=== PATIENT | male | born 1950 | race Caucasian/White ===

== ENCOUNTER → 2016-03-04 | Outpatient (CLI) | payer BC, MEDICARE ==
[~2016-03-04] VITALS: Ht 180.3 cm; Wt 79.4 kg
[~2016-03-04] MED LIST: ALPR0.5T PO; BUSP10TA95 PO; ENAL20TA74 PO; EZET10TA5 PO; FLUT1DIS26 IH; HYDR12.56 PO; METF500T3 PO; OXYC-197 PO; RT-ALBUINH IH; SERT100T PO; ZAFI20TA12 PO
== END ==
LOC: PREOP 06:58
PROVIDERS: ATTEND Surgery
DX: Z01.818 Encounter for other preprocedural examination (principal); Z12.11 Encounter for screening for malignant neoplasm of colon

== ENCOUNTER 2016-03-08 10:47 | Day surgery (SDC) | payer BC, MEDICARE ==
[~2016-03-08] VITALS: Ht 180.3 cm; Wt 79.4 kg
--- NOTE | 2016-03-08 10:59 | Pre-Op Note & Conscious Sedat ---
Pre-Operative Progress Note H&P Reviewed The H&P was reviewed, patient examined and no changes noted. Date H&P Reviewed: Mar 08, 2016 Time H&P Reviewed: 10:59 Pre-Op Diagnosis: screening Conscious Sedation Pre-Proced ASA Class: 2 Airway Mallampati Classification: (little shell tribe appropriate class) I. II. III, IV Lungs Heart ASA score ASA 1: a normal healthy patient ASA 2: a patient with a mild systemic disease (mid diabetes, controlled hypertension, obesity ASA 3: a patient with a severe systemic disease that limits activity (angina , COPD, prior Myocardial infarction) ASA 4: a patient with an incapacitating disease that is a constant threat to life (CHF, renal failure) ASA 5: a moribund patient not expected to survive 24 hrs. (ruptured aneurysm) ASA 6: a declared brain patient whose organs are being harvested. For emergent operations, add the letter E after the classification Grade 1 Sedation Plan: Discussed options with patient/fam Note The patient is an appropriate candidate to undergo the planned procedure, sedation, and anesthesia. The patient immediately re-assessed prior to indication. TOYIN BRISENO MD Mar 08, 2016 10:59 am
[2016-03-08] MEDS ORDERED: NS IV 500 ML 500 ML ONE (11:10)
[2016-03-08] MEDS ORDERED: NS IV 500 ML 500 ML IV PRN (11:20)
[2016-03-08 11:52] VITALS: BP 102/47
[2016-03-08] MEDS ORDERED: FLUMAZENIL (ROMAZICON) 0.1 MG/ML 5 ML VIAL INJ PRN (12:00)
[2016-03-08] MEDS ORDERED: NALOXONE 0.4 MG/ML 1 ML (NARCAN) VIAL IVP PRN (12:00)
[2016-03-08] MEDS ORDERED: FLUT1DIS26 IH (12:02)
[2016-03-08] MEDS ORDERED: EZET10TA5 PO (12:02)
[2016-03-08] MEDS ORDERED: BUSP10TA95 PO (12:02)
[2016-03-08] MEDS ORDERED: HYDR12.56 PO (12:02)
[2016-03-08] MEDS ORDERED: ALPR0.5T PO (12:02)
[2016-03-08] MEDS ORDERED: ENAL20TA74 PO (12:02)
[2016-03-08] MEDS ORDERED: METF500T3 PO (12:02)
[2016-03-08] MEDS ORDERED: ZAFI20TA12 PO (12:02)
[2016-03-08] MEDS ORDERED: RT-ALBUINH IH (12:02)
[2016-03-08] MEDS ORDERED: SERT100T PO (12:02)
[2016-03-08] MEDS ORDERED: fentaNYL INJECTION 100 MCG/2 ML AMP INJ ONE ×2 (12:04)
[2016-03-08] MEDS: fentaNYL INJECTION 100 MCG/2 ML AMP IVP PRN ×4 (12:10→12:22)
[2016-03-08] MEDS: MIDAZOLAM 2 MG/2 ML (VERSED) VIAL IVP PRN ×4 (12:15→12:21)
--- NOTE | 2016-03-08 12:32 | Progress Note-Post Operative ---
Post-Operative Progess Note Pre-Operative Diagnosis screening Post-Operative Diagnosis 2 mm polyp at the proximal rectum Post-Op Procedure Note Date of Procedure: Mar 08, 2016 Name of Procedure: colonoscopy to cecum Hot biopsy polypectomy Anesthesia Type sedation Specimen(s) collected rectal polyp TOYIN BRISENO MD Mar 08, 2016 12:32 pm
--- NOTE | 2016-03-08 12:33 | Discharge Inst-Simple/Standard ---
Discharge Inst-Standard Discharge Medications New, Converted or Re-Newed RX: Other Patient Instructions/Follow Up Plan of Care/Instructions/FU: repeat colonoscopy in 5 years. To return for hernia surgery as instructed Activity as Tolerated: Yes Discharge Diet: No Restrictions TOYIN BRISENO MD Mar 08, 2016 12:33 pm
--- NOTE | 2016-03-08 12:47 | PROCEDURE REPORT ---
PROCEDURE PHYSICIAN: TOYIN BRISENO DATE OF PROCEDURE: 03/08/2016 PROCEDURE: 1. Screening colonoscopy. 2. Polypectomy (hot biopsy). SURGEON: Yossi. INDICATION FOR THE PROCEDURE: This gentleman came in for screening colonoscopy. Informed consent was obtained after reviewing the procedure in detail. DESCRIPTION OF PROCEDURE: He was placed in left lateral decubitus position and his vital signs were monitored. Conscious sedation was achieved using Versed and fentanyl. Digital rectal examination was unremarkable. The colonoscope was then introduced into the rectum and advanced all the way up to the cecum. The quality of bowel preparation was excellent. The scope was then withdrawn slowly and the mucosa examined in a systematic fashion. FINDINGS: 2 mm polyp at the proximal rectum that was excised with hot biopsy forceps. He tolerated the procedure well and was taken back to the nursing area in a stable condition. IMPRESSION: 1. Screening colonoscopy. 2. Small rectal polyp excised. 3. Recommend repeating in 5 years. Job ID: [id number] Dictated Date: 03/08/2016 12:30:07 Hydraulic Lift Operator Date: 03/08/2016 12:43:29 / tonie RENE
[2016-03-08 13:05] VITALS: BP 114/65
[2016-03-08 13:30] VITALS: BP 118/72
[2016-03-19] MEDS ORDERED: OXYC-197 PO (10:00)
== END 2016-03-08 13:30 | disposition home or self-care (01) ==
LOC: SDC 10:47
PROVIDERS: ATTEND Surgery
DX: Z12.11 Encounter for screening for malignant neoplasm of colon (principal); K62.1 Rectal polyp

== ENCOUNTER 2016-03-08 10:55 | Outpatient (CLI) | payer BC, MEDICARE ==
[~2016-03-08] VITALS: Ht 180.3 cm; Wt 79.4 kg
[2016-03-08] MEDS ORDERED: FLUMAZENIL (ROMAZICON) 0.1 MG/ML 5 ML VIAL INJ PRN (11:15)
[2016-03-08] MEDS ORDERED: NALOXONE 0.4 MG/ML 1 ML (NARCAN) VIAL IVP PRN (11:15)
[2016-03-08] MEDS ORDERED: fentaNYL INJECTION 100 MCG/2 ML AMP IVP PRN (11:15)
[2016-03-08] MEDS ORDERED: MIDAZOLAM 2 MG/2 ML (VERSED) VIAL IVP PRN (11:15)
[2016-03-08] MEDS ORDERED: NS IV 500 ML 500 ML IV PRN (11:30)
[2016-03-08 11:37] VITALS: BP 102/47
[2016-03-08] MEDS ORDERED: BUSP10TA95 PO (12:02)
[2016-03-08] MEDS ORDERED: ZAFI20TA12 PO (12:02)
[2016-03-08] MEDS ORDERED: HYDR12.56 PO (12:02)
[2016-03-08] MEDS ORDERED: ALPR0.5T PO (12:02)
[2016-03-08] MEDS ORDERED: RT-ALBUINH IH (12:02)
[2016-03-08] MEDS ORDERED: FLUT1DIS26 IH (12:02)
[2016-03-08] MEDS ORDERED: ENAL20TA74 PO (12:02)
[2016-03-08] MEDS ORDERED: EZET10TA5 PO (12:02)
[2016-03-08] MEDS ORDERED: METF500T3 PO (12:02)
[2016-03-08] MEDS ORDERED: SERT100T PO (12:02)
[2016-03-08 12:12] LABS: BASOPHILS % (AUTO) 0 % (0-10); EOSINOPHILS # (AUTO) 0.1 10^3/uL (0.0-0.3); EOSINOPHILS % (AUTO) 3 % (0-10); LYMPHOCYTES # (AUTO) 2.1 X 10^3 (1.0-4.0); LYMPHOCYTES % (AUTO) 41 % (12-44); MEAN CORPUSCULAR HEMOGLOBIN 32 PG (25-34); MEAN CORPUSCULAR HGB CONC 36 G/DL (32-36); MEAN CORPUSCULAR VOLUME 89 FL (80-99); MEAN PLATELET VOLUME 9.7 FL (7.4-10.4); MONOCYTES # (AUTO) 0.6 X 10^3 (0.0-1.0); MONOCYTES % (AUTO) 12 % (0-12); NEUTROPHILS # (AUTO) 2.3 X 10^3 (1.8-7.8); NEUTROPHILS % (AUTO) 44 % (42-75); PLATELET COUNT 165 10^3/uL (130-400); RED CELL DISTRIBUTION WIDTH 12.6 % (10.0-14.5); WHITE BLOOD COUNT 5.2 10^3/uL (4.3-11.0)
[2016-03-08 12:33] LABS: ANION GAP 14 MMOL/L (5-14); BLOOD UREA NITROGEN 12 MG/DL (7-18); BUN/CREATININE RATIO 11; CALCIUM 9.9 MG/DL (8.5-10.1); CARBON DIOXIDE 23 MMOL/L (21-32); CHLORIDE 93 MMOL/L (98-107); CREATININE SERUM 1.13 MG/DL (0.60-1.30); GFR ESTIMATED > 60; GLUCOSE 138 MG/DL (70-105); SODIUM 130 MMOL/L (135-145)
== END 2016-03-08 12:58 | disposition home or self-care (01) ==
LOC: PREOP 10:55
PROVIDERS: ATTEND Surgery
DX: Z01.812 Encounter for preprocedural laboratory examination (principal); Z11.2 Encounter for screening for other bacterial diseases; K43.9 Ventral hernia without obstruction or gangrene
CPT/HCPCS: 36415; 80048; 85025; 87081

== ENCOUNTER 2016-03-19 06:00 | Day surgery (SDC) | payer BC, MEDICARE ==
[~2016-03-19] VITALS: Ht 180.3 cm; Wt 79.4 kg
[~2016-03-19 06:00] MED LIST changes: -OXYC-197 PO
--- OUTSIDE RECORDS SUMMARY | 2016-03-19 06:09 | XMS REPORT | Continuity of Care Document ---
Author Author [facility] Organization [facility] Address Unknown Phone Unavailable Care Team Providers Care Binder Technician Name Role Phone THANIA WELSH MD PCP Insurance Providers Payer Name Policy Number Subscriber Name Relationship [facility] [id number] Denae Irizarry 01 Advance Directives Directive Response Recorded Date/Time Advance Directives No 03/08/16 11:46am Health Care Power of Paperhanger Supervisor No 03/08/16 11:46am Resuscitation Status Full Code 03/08/16 11:46am Problems No problem information available. Medications Current Home Medications Medication Dose Units Route Directions Days/Qty Instructions Start Date Fluticasone/Salmeterol 1 Each 2 Puff Inhalation Daily 03/08/16 Metformin Hcl 500 Mg 500 Mg Oral Three Times A Day 03/08/16 Buspirone Hcl 10 Mg 10 Mg Oral Four Times Daily 03/08/16 Sertraline Hcl 100 Mg 100 Mg Oral Twice A Day 03/08/16 Zafirlukast 20 Mg 20 Mg Oral Twice A Day 03/08/16 Albuterol Sulfate 18 Gm 1-2 Puff Inhalation As Needed 03/08/16 Enalapril Maleate 20 Mg 20 Mg Oral Daily 03/08/16 Ezetimibe 10 Mg 10 Mg Oral Daily 03/08/16 Hydrochlorothiazide 12.5 Mg 12.5 Mg Oral Daily 03/08/16 Alprazolam 0.5 Mg 0.5 Mg Oral Three Times A Day 03/08/16 Social History Social History Problem Response Recorded Date/Time Alcohol Use Denies Use 03/08/2016 11:46am Recreational Drug Use No 03/08/2016 11:46am Recent Foreign Travel No 03/08/2016 11:43am Recent Infectious Disease Exposure No 03/08/2016 11:43am Sexually Transmitted Disease No 03/08/2016 11:02am HIV/AIDS No 03/08/2016 11:02am Smoking Status Never a Smoker 03/08/2016 11:46am Recent Hopitalizations No 03/08/2016 11:02am Sexually Transmitted Disease No 03/08/2016 11:02am Query Response Start Date Stop Date Smoking Status Never a Smoker Hospital Discharge Instructions No hospital discharge instructions. Plan of Care Discharge Date 03/08/16 12:58pm Prescriptions See Medication Section Functional Status No functional status results. Allergies, Adverse Reactions, Alerts Allergen Type Severity Reaction Status Last Updated Penicillins ([id number]) Allergy Unknown Active 03/04/16 Immunizations No immunization records. Vital Signs Acute Vital Signs Vital Response Date/Time Temperature (Fahrenheit) 97.9 degrees F (97.6 - 99.5) 03/08/2016 1:30pm Temperature (Calculated Celsius) 36.49933 degrees C (36.4 - 37.5) 03/08/2016 1:30pm Temperature Source Tympanic 03/08/2016 1:30pm Pulse Rate (adult) 69 bpm (60 - 90) 03/08/2016 1:30pm Respiratory Rate 16 bpm (12 - 24) 03/08/2016 1:30pm O2 Sat by Pulse Oximetry 95 % (88 - 100) 03/08/2016 1:30pm Blood Pressure 118/72 mm Hg 03/08/2016 1:30pm Blood Pressure Mean 65 mm Hg 03/08/2016 11:52am Blood Pressure 118/72 mm Hg 03/08/2016 1:30pm Pain Numeric Pain Scale 0-No Pain 03/08/2016 1:30pm Pain Intensity 0 03/08/2016 1:30pm Pain Pain Intensity 0 03/08/2016 1:30pm Height (Feet) 5 feet 03/08/2016 11:55am Height (Inches) 11.00 inches 03/08/2016 11:55am Height (Calculated Centimeters) 180.998259 cm 03/08/2016 11:55am Weight (Pounds) 175 pounds 03/08/2016 11:55am Weight (Ounces) 0.0 oz 03/08/2016 11:55am Weight (Calculated Grams) 79458.67 gm 03/08/2016 11:55am Weight (Calculated Kilograms) 79.057558 kilograms 03/08/2016 11:55am Calculated BMI 24.4 03/08/2016 11:55am Results Pending Laboratory Results Test Name Collection Date/Time Procedures No known history of procedures. Encounters Encounter Location Arrival/Admit Date Discharge/Depart Date Attending Provider Departed Clinic [facility] 03/08/16 10:55am 03/08/16 12: 58pm TOYIN BRISENO MD Registered [facility] 03/08/16 10:47am TOYIN BRISENO MD Registered Clinic [facility] 03/04/16 6:58am TOYIN BRISENO MD
--- OUTSIDE RECORDS SUMMARY | 2016-03-19 06:10 | XMS REPORT | Continuity of Care Document ---
Author Author [facility] Organization [facility] Address Unknown Phone Unavailable Care Team Providers Care Mechanical Equipment Test Engineer Name Role Phone THANIA WELSH MD PCP Insurance Providers Payer Name Policy Number Subscriber Name Relationship [facility] [id number] Denae Irizarry 01 Advance Directives Directive Response Recorded Date/Time Advance Directives No 03/08/16 11:46am Health Care Power of Puppy Walker No 03/08/16 11:46am Resuscitation Status Full Code [...] Type Severity Reaction Status Last Updated Penicillins ([id number]) Allergy Unknown Active 03/04/16 Immunizations No immunization records. Vital Signs Acute Vital Signs Vital Response Date/Time Temperature (Fahrenheit) 97.9 degrees F (97.6 - 99.5) 03/08/2016 1:30pm Temperature (Calculated Celsius) 36.26247 degrees C (36.4 - 37.5) 03/08/2016 1:30pm [...] 11.00 inches 03/08/2016 11:55am Height (Calculated Centimeters) 180.949244 cm 03/08/2016 11:55am Weight (Pounds) 175 pounds 03/08/2016 11:55am Weight (Ounces) 0.0 oz 03/08/2016 11:55am Weight (Calculated Grams) 15480.67 gm 03/08/2016 11:55am Weight (Calculated Kilograms) 79.475878 kilograms 03/08/2016 11:55am Calculated BMI 24.4 03/08/2016 11:55am Results Pending Laboratory Results Test Name Collection Date/Time Procedures No known history of procedures. Encounters Encounter Location Arrival/Admit Date Discharge/Depart Date Attending Provider Departed Clinic [facility] 03/08/16 10:55am 03/08/16 12: 58pm TOYIN BRISENO MD Registered [facility] 03/08/16 10:47am TOYIN BRISENO MD Registered Clinic [facility] 03/04/16 6:58am TOYIN BRISENO MD
[2016-03-19] MEDS ORDERED: PREGABALIN 75 MG (LYRICA) CAP PO ONE ×2 (06:45→10:00)
[2016-03-19] MEDS ORDERED: oxyCODONE ER 10 MG (OxyCONTIN CR) TAB PO ONE ×2 (06:45→10:00)
[2016-03-19] MEDS ORDERED: ACETAMINOPHEN 500 MG TAB (TYLENOL) PO ONE ×2 (06:45→10:00)
[2016-03-19] MEDS ORDERED: CELECOXIB 100 MG (CeleBREX) CAP PO ONE ×2 (06:45→10:00)
[2016-03-19] MEDS ORDERED: FAMOTIDINE 20MG/2ML IV (PEPCID) IV ONE (07:00)
[2016-03-19] MEDS ORDERED: BUP/EPI 0.25% 1:200,000 (MARCAINE) 30 ML VIAL ONE (07:01)
[2016-03-19] MEDS: LACTATED RINGERS 1,000 ML IV PRN ×2 (07:13→09:30)
[2016-03-19 07:20] VITALS: BP 154/104
[2016-03-19] MEDS ORDERED: VANCOMYCIN 1 GM/NS 250 ML IVPB IV ONE ×2 (07:30)
[2016-03-19] MEDS ORDERED: CATHETER FLUSH 10 ML SYR IV PRN (07:30)
[2016-03-19] MEDS ORDERED: VANCOMYCIN 1 GM ADD-VANTAGE VIAL IV ONE (07:53)
[2016-03-19] MEDS ORDERED: SODIUM CHLORIDE (ADD-VANTAGE) 250 ML ONE (07:54)
[2016-03-19] MEDS ORDERED: LIDOCAINE PF 2% 10 ML (XYLOCAINE) AMP ONE (07:57)
[2016-03-19] MEDS ORDERED: MIDAZOLAM 2 MG/2 ML (VERSED) VIAL ONE (07:57)
[2016-03-19] MEDS ORDERED: LIDOCAINE JELLY 2% (XYLOCAINE) 5 ML TUBE ONE (07:57)
[2016-03-19] MEDS ORDERED: ROCURONIUM 50 MG/5 ML (ZEMURON) VIAL IV ONE (07:57)
[2016-03-19] MEDS ORDERED: ONDANSETRON 4 MG/2 ML (SDV) Z0FRAN ONE (07:57)
[2016-03-19] MEDS ORDERED: proPOfol 200 MG/20 ML (DIPRIVAN) VIAL IV ONE ×2 (07:57→09:57)
[2016-03-19] MEDS ORDERED: LACTATED RINGERS 1,000 ML IV ONE ×2 (07:57→09:31)
[2016-03-19] MEDS ORDERED: KETAMINE HCL 100 MG/ML 5 ML VIAL ONE ×2 (07:58→08:28)
--- NOTE | 2016-03-19 08:20 | Progress Note-Pre Operative ---
Pre-Operative Progress Note H&P Reviewed The H&P was reviewed, patient examined and no changes noted. Date H&P Reviewed: Mar 19, 2016 Time H&P Reviewed: 08:20 Pre-Operative Diagnosis: Ventral hernia TOYIN BRISENO MD Mar 19, 2016 8:20 am
[2016-03-19] MEDS ORDERED: SEVOFLURANE (ULTANE) 15 ML INHAL SOLN ONE ×8 (09:30→10:04)
[2016-03-19] MEDS ORDERED: hydrALAZINE (APESOLINE) 20 MG/ML VIAL ONE (09:31)
[2016-03-19] MEDS ORDERED: LIDOCAINE PF 0.5% 50 ML (XYLOCAINE) VIAL ONE (09:31)
[2016-03-19] MEDS ORDERED: NEOSTIGMINE (BLOXIVERZ ) 1 MG/1ML 10 ML VIAL ONE (09:55)
[2016-03-19] MEDS ORDERED: GLYCOPYRROLATE 0.2 MG/ML (ROBINUL) 2 ML VIAL ONE (09:55)
--- NOTE | 2016-03-19 09:57 | Progress Note-Post Operative ---
Post-Operative Progess Note Pre-Operative Diagnosis Ventral hernia Post-Operative Diagnosis SAME Post-Op Procedure Note Date of Procedure: Mar 19, 2016 Name of Procedure: robotic assisted repair with mesh Anesthesia Type Gen. Estimated blood loss (mL): minimal Specimen(s) collected hernia contents TOYIN BRISENO MD Mar 19, 2016 9:57 am
[2016-03-19] MEDS ORDERED: morphine INJ 4 MG/ML 1 ML (VIAL/SYRINGE) IV PRN (10:00)
[2016-03-19] MEDS ORDERED: OXYC-197 PO (10:00)
--- NOTE | 2016-03-19 10:01 | Discharge Inst-Simple/Standard ---
Discharge Inst-Standard Discharge Medications New, Converted or Re-Newed RX: RX on Chart Patient Instructions/Follow Up Plan of Care/Instructions/FU: Dressings off in 48 hours ; follow-up in 4 weeks Activity as Tolerated: No Goal: no lifting over 20 pounds Discharge Diet: ADA TOYIN Cohn MD Mar 19, 2016 10:01 am
[2016-03-19] MEDS ORDERED: ONDANSETRON 4 MG/2 ML (SDV) Z0FRAN IVP PRN (10:30)
[2016-03-19] MEDS ORDERED: MEPERIDINE (DEMEROL) INJ 50 MG/ML IVP PRN (10:30)
[2016-03-19] MEDS ORDERED: morphine INJ 10 MG/ML 1ML (SYR OR VIAL) IVP PRN (10:30)
[2016-03-19] MEDS: morphine INJ 10 MG/ML 1ML (SYR OR VIAL) IV PRN ×4 (10:33→14:44)
[2016-03-19 11:13] VITALS: BP 127/76
[2016-03-19] MEDS: KETOROLAC 30 MG/ML VIAL IV SCH ×4 (12:00→23:48)
[2016-03-19] MEDS: KETOROLAC 15 MG/ML VIAL IV SCH ×3 (12:00→23:41)
--- NOTE | 2016-03-19 12:46 | OPERATIVE REPORT ---
PROCEDURE PHYSICIAN: TOYIN BRISENO DATE OF PROCEDURE: 03/19/2016 PREOPERATIVE DIAGNOSIS: Ventral hernia. POSTOPERATIVE DIAGNOSIS: Ventral hernia. OPERATION: Robotic assisted repair of ventral hernia with mesh. SURGEON: Yossi. ANESTHESIA: General anesthesia. BLOOD LOSS: Minimal. FLUIDS: 1300 mL crystalloids. TYPE OF WOUND: Type 1 (clean wound). INDICATION FOR THE PROCEDURE: This gentleman presented with a symptomatic ventral hernia in relation to his umbilicus. He was offered minimally invasive repair using robotic assistance and mesh replacement. The feasibility of primary closure of the defect with the robotic technique was felt to be an advantage. Informed consent was obtained after reviewing the operative details and complications of wound infection, infection of the mesh and recurrence of the hernia. DESCRIPTION OF PROCEDURE: He was placed supine on the operating table and general anesthesia induced using an endotracheal tube. A gram of vancomycin was administered intravenously as prophylaxis against wound infection. Sequential compression devices were placed around his legs, to minimize the risk of venous thrombosis. Abdomen was prepared and draped in the usual sterile manner. Right side of his body with tilted up on a soft roll to facilitate triangulation of the robotic system. Pneumoperitoneum was established using a Veress needle introduced over the right subcostal margin, along the midaxillary line. Intra-abdominal pressure was maintained at 15 mmHg, using carbon dioxide insufflation. A 12 mm trocar was placed and anatomy visualized using the high definition, 3 dimensional laparoscope associated with Kizziang system. Omentum was adherent to the undersurface of the right paramedian scar. In addition, omentum was also trapped within the hernia itself. Under direct view, I placed another 12 mm trocar over the right side of the abdomen along the midaxillary line, followed by an 8 mm trocar over the right lower quadrant. The robotic system was then docked in place. Under the right paramedian scar was taken down using hook cautery. In addition, extraperitoneal fat contained within the hernia was also excised and removed using an Endo Catch bag at the end of the operation. Greater omentum entrapped within the hernia was taken down delineating the defect, that measured about 2 cm in diameter. It was closed primarily using a 0 V-Loc suture using robotic assistance. During this maneuver, intra-abdominal pressure was maintained at 10 mm to reduce tension on the suture line. The repair was then reinforced with a polypropylene mesh attached to a self-retaining balloon system, measuring 11.4 cm in diameter. The balloon was held up to facilitate securing the mesh with robotic assistance. This was achieved using a continuous V-Loc 2-0 suture with robotic assistance. Hemostasis was satisfactory and the operation concluded. The trocars were removed and the incisions closed using 4-0 Vicryl, in a subcuticular fashion. 0.25% Marcaine with epinephrine was infiltrated along the incisions, both preemptively and at the conclusion of the operation. He tolerated the procedure well, was extubated in the operating room and taken to the recovery room in a stable condition. [place], sponges, and instruments were correct at the end of the operation. Job ID: [id number] Dictated Date: 03/19/2016 09:54:20 Workers Compensation Coordinator Date: 03/19/2016 12:37:00 / tonie RENE
[2016-03-19] MEDS: metFORMIN XR 500 MG (GLUCOPHAGE XR) TAB PO SCH ×2 (13:00→17:00)
[2016-03-19] MEDS: ALPRAZolam 0.5 MG (XANAX) TAB PO SCH ×2 (13:00→20:52)
[2016-03-19] MEDS: busPIRone 10 MG (BUSPAR) TAB PO SCH ×3 (13:00→20:51)
[2016-03-19] MEDS: RT-ALBUTEROL SULF 2.5 MG/3 ML PRE-MIX VIAL INH SCH ×2 (14:07→19:02)
[2016-03-19 16:00] VITALS: BP 152/87
[2016-03-19 20:00] VITALS: BP 146/77
[2016-03-19] MEDS: SERTRALINE 100 MG (ZOLOFT) TAB PO SCH (20:52)
[2016-03-19] MEDS ORDERED: ZAFIRLUKAST (ACCOLATE) 20 MG TAB PO SCH (21:00)
[2016-03-20] VITALS: BP 138/76
[2016-03-20 04:00] VITALS: BP 116/65
[2016-03-20] MEDS: KETOROLAC 15 MG/ML VIAL IV SCH (06:00)
[2016-03-20] MEDS: KETOROLAC 30 MG/ML VIAL IV SCH (06:11)
[2016-03-20] MEDS: metFORMIN XR 500 MG (GLUCOPHAGE XR) TAB PO SCH (06:12)
[2016-03-20] MEDS: RT-ALBUTEROL SULF 2.5 MG/3 ML PRE-MIX VIAL INH SCH (07:37)
[2016-03-20] MEDS: RT-ADVAIR HFA 115/21 MCG PER PUFF IH SCH ×2 (07:41→07:46)
[2016-03-20 08:00] VITALS: BP 123/64
[2016-03-20] MEDS: ALPRAZolam 0.5 MG (XANAX) TAB PO SCH (08:14)
[2016-03-20] MEDS: busPIRone 10 MG (BUSPAR) TAB PO SCH (08:14)
[2016-03-20] MEDS: SERTRALINE 100 MG (ZOLOFT) TAB PO SCH (08:15)
[2016-03-20] MEDS ORDERED: ENALAPRIL 10 MG (VASOTEC) TAB PO SCH (09:00)
[2016-03-20] MEDS ORDERED: eZETimibe 10 MG (ZETIA) TABLET PO SCH (09:00)
[2016-03-20] MEDS ORDERED: ENALAPRIL MALEATE 20 MG PO SCH (09:00)
[2016-03-20] MEDS ORDERED: NON-FORMULARY MEDICATION 1 EA EA (Fluticasone/Salmeterol (Advair 250-50 Diskus) 2 PUFF) IH SCH (09:00)
--- NOTE | 2016-03-20 10:58 | Progress Note-Standard ---
Standard Progress Note Progress Notes/Assess & Plan Progress/Assessment & Plan 03/20/16:ppain control adequate. Mild ecchymosis around the umbilicus. Tolerating soft diet. Could be discharged home Final Diagnosis ventral hernia TOYIN BRISENO MD Mar 20, 2016 10:58 am
[2016-03-20 11:00] VITALS: BP 128/68
== END 2016-03-20 11:00 | disposition home or self-care (01) ==
LOC: SDC 06:00 → 4TH 11:13 → SDC 03-20 11:00
PROVIDERS: ATTEND Surgery
DX: K43.9 Ventral hernia without obstruction or gangrene (principal); E11.9 Type 2 diabetes mellitus without complications; Z79.84 Long term (current) use of oral hypoglycemic drugs
CPT/HCPCS: 82962; 94640; 94664; 94760

== ENCOUNTER → 2017-01-31 | Outpatient (CLI) | payer BC ==
[~2017-01-31] VITALS: Ht 182.9 cm; Wt 81.6 kg
[~2017-01-31] MED LIST changes: +CATHETER FLUSH 10 ML SYR IV PRN; +OXYC-197 PO
[2017-01-31 07:57] VITALS: BP 149/97
--- NOTE | 2017-01-31 22:02 | STRESS TEST ---
DATE OF SERVICE: 01/31/2017 EXERCISE MYOVIEW STRESS TEST REPORT Baseline heart rate is 77, baseline blood pressure 162/100. Baseline EKG is sinus rhythm with no ischemic changes. SUMMARY: The patient was injected with 10.43 mCi of technetium-99 Myoview and the resting images were obtained. Then, the patient started exercising with a baseline heart rate, blood pressure and EKG mentioned above. The patient was able to exercise for a total of 8 minutes and 30 seconds on standard Riki protocol. With peak exercise level, EKG was showing [address] depression in II, III and aVF. Blood pressure was 171/75. During recovery, heart rate and blood pressure returned to baseline, EKG returned to baseline. The resting and stress images were reviewed and compared in the short axis, horizontal long axis and vertical long axis views. Review of the images showed diaphragmatic attenuation with slight motion artifact affecting the quality of the images. Overall, there is decreased uptake at the mid to apical inferior wall, which appeared to be fixed. No significant reversibility was seen. SSS is 4, SDS 0, TID value 1.02. On the gated images, the left ventricle appeared to be in normal size with normal contractility, calculated ejection fraction 61%. CONCLUSION: 1. Good exercise tolerance. A total of 8 minutes 30 seconds on standard Riki protocol, total of 10.3 METs, achieving 89% of maximum expected heart rate. 2. Appropriate heart rate response to exercise with hypertensive response to exercise, returned to baseline during recovery. 3. Nondiagnostic EKG changes with exercise, returned to baseline during recovery. 4. Diaphragmatic attenuation with typical male pattern, no significant ischemia or infarction on SPECT images. 5. Normal left ventricular size with normal contractility, calculated ejection fraction 61%. Job ID: [id number] DocumentID: [id number] Dictated Date: 01/31/2017 11:11:41 Skip Miner Blasting Date: 01/31/2017 12:42:16 Dictated By: JOAQUIN ARELLANO MD
== END ==
LOC: CARD 06:43
PROVIDERS: ATTEND Internal Medicine Cardiovascular Disease
DX: E11.9 Type 2 diabetes mellitus without complications (principal); R06.02 Shortness of breath; I10 Essential (primary) hypertension; E78.5 Hyperlipidemia, unspecified; Z82.49 Family history of ischemic heart disease and other diseases of the circulatory system; Z83.3 Family history of diabetes mellitus
CPT/HCPCS: 78452; 93017

== ENCOUNTER → 2020-05-12 | Outpatient (CLI) | payer BC, MEDICARE ==
[~2020-05-12] MED LIST changes: -CATHETER FLUSH 10 ML SYR IV PRN; +EZET10TA17 PO; -EZET10TA5 PO; -OXYC-197 PO; +OXYC1TAB87 PO
== END ==
LOC: CARD 12:45
PROVIDERS: ATTEND Internal Medicine Cardiovascular Disease
DX: I10 Essential (primary) hypertension (principal); I34.0 Nonrheumatic mitral (valve) insufficiency
CPT/HCPCS: 93306

== ENCOUNTER → 2021-04-29 | Outpatient (CLI) | payer MEDICARE, OTHER ==
[~2021-04-29] MED LIST changes: +CATHETER FLUSH 10 ML SYR IVP PRN; +REGADENOSON 0.4 MG/5 ML SYR (LEXISCAN) IV ONE
[2021-04-29 13:07] VITALS: BP 148/82
--- NOTE | 2021-04-29 15:25 | Cardiology Stress Test Report ---
Stress Test Report Date of Procedure/Referring: Date of Procedure: Apr 29, 2021 Latonya Pacheco Admitting Physician Madison Landry MD Indications: HTN Baseline Heart Rate: 58 Baseline Blood Pressure: Blood Pressure Systolic: 148 Blood Pressure Diastolic: 82 Baseline Vitals Vital Signs Date Time Temp Pulse Resp B/P (MAP) Pulse Ox O2 Delivery O2 Flow Rate FiO2 04/29/21 13:07 58 148/82 (104) 98 Baseline EKG: Baseline EKG: NSR Summary After explaining the procedure to the patient, he signed a consent and then brought to the stress nuclear laboratory. Patient received 0.4 mg Lexiscan for stress test, ECG, heart rate and blood pressure were monitored continuously. Resting and stress dose of radio tracer were injected, imaging was acquired and reviewed in short axis, horizontal long axis and vertical long axis views. TID: 1.21 SSS: 3 SDS: 2 EF: 57 1. Patient was unable to exercise beyond 4 minutes and 20 seconds on standard Riki protocol. Test was converted to Lexiscan. 2. Diaphragmatic attenuation with mild ischemia involving the basal to mid inferior wall and inferolateral wall 3. Ejection fraction 57% 4. TID1.21 JOAQUIN ARELLANO MD Apr 29, 2021 15:25
== END ==
LOC: CARD 11:30
PROVIDERS: ATTEND Physician Assistant
DX: I10 Essential (primary) hypertension (principal)
CPT/HCPCS: 78452; 93017; A9502

== ENCOUNTER 2021-05-06 08:00 | Day surgery (SDC) | payer MEDICARE, OTHER ==
[~2021-05-06] VITALS: Ht 182 cm; Wt 79.9 kg
[2021-05-06] VITALS (10 sets, daily range): BP systolic 102–182; BP diastolic 69–126
[2021-05-06 07:16] LABS: HEMATOCRIT 44 % (40-54); HEMOGLOBIN 15.6 g/dL (13.3-17.7); MEAN CORPUSCULAR HEMOGLOBIN 32 pg (25-34); MEAN CORPUSCULAR HGB CONC 35 g/dL (32-36); MEAN CORPUSCULAR VOLUME 91 fL (80-99); MEAN PLATELET VOLUME 9.5 fL (9.0-12.2); PLATELET COUNT 156 10^3/uL (130-400); WHITE BLOOD COUNT 5.8 10^3/uL (4.3-11.0)
[2021-05-06 07:17] LABS: BILIRUBIN,URINE NEGATIVE (NEGATIVE); CLARITY,URINE CLEAR; COLOR,URINE YELLOW; GLUCOSE, URINE (UA) TRACE (NEGATIVE); KETONES,URINE NEGATIVE (NEGATIVE); LEUKOCYTE ESTERASE ,URINE NEGATIVE (NEGATIVE); NITRITE,URINE NEGATIVE (NEGATIVE); PROTEIN,URINE NEGATIVE (NEGATIVE)
[2021-05-06 07:26] LABS: BACTERIA,URINE NEGATIVE /HPF
--- NOTE | 2021-05-06 07:28 | Diagnostic Imaging Report ---
INDICATION: Coronary artery disease Frontal chest obtained at 7:24 a.m. There is no prior study for comparison Heart and mediastinal silhouette are normal in appearance. The lungs appear clear. There is no pneumothorax or pleural fluid collection. IMPRESSION: No acute process in the chest. Dictated by: Dictated on workstation # [id number]
[2021-05-06 07:43] LABS: ALANINE AMINOTRANSFERASE 58 U/L (0-55); ALBUMIN 4.6 GM/DL (3.2-4.5); ALKALINE PHOSPHATASE 78 U/L (40-136); BILIRUBIN,TOTAL 1.1 MG/DL (0.1-1.0); BUN/CREATININE RATIO 13; CALCIUM 9.9 MG/DL (8.5-10.1); CARBON DIOXIDE 21 MMOL/L (21-32); CHLORIDE 98 MMOL/L (98-107); CHOLESTEROL 143 MG/DL (< 200); GFR ESTIMATED 65; GLUCOSE 169 MG/DL (70-105); HDL CHOLESTEROL 55 MG/DL (40-60); POTASSIUM 3.7 MMOL/L (3.6-5.0); SODIUM 134 MMOL/L (135-145); TOTAL PROTEIN 7.9 GM/DL (6.4-8.2); TRIGLYCERIDES 87 MG/DL (<150); VLDL CHOLESTEROL 17 MG/DL (5-40)
[~2021-05-06 08:00] MED LIST changes: -CATHETER FLUSH 10 ML SYR IVP PRN; +FLUT1BLS3 IH; +HEParin (CATH LAB) 2,000 ML IV ONE; +HEParin 1000 UNIT/ML (10ML VIAL) FOR BOLUS ONE; +LIDOCAINE 1% INJ 50 ML (XYLOCAINE) VIAL ONE; +METF-397 PO; +MIDAZOLAM 5 MG/5 ML (VERSED) VIAL ONE; +NITRO DRIP 25000 MCG/D5W 250 ML IV ONE; +NS IV 1000 ML 1,000 ML IV SCH; +NS IV 1000 ML 1,000 ML ONE; -REGADENOSON 0.4 MG/5 ML SYR (LEXISCAN) IV ONE; +ROSU10TA28 PO; +RT-ALBUINH INH; +VERAPAMIL 5 MG/2 ML (CALAN) VIAL IV ONE; +VITAMIN B12 PO; +VITAMIN D PO; +fentaNYL INJ 100 MCG/2 ML AMP ONE
--- NOTE | 2021-05-06 08:01 | Conscious Sedation/ASA ---
Conscious Sedation Pre-Proced Time 08:01 ASA Score 3 For ASA 3 and 4: Consider anesthesia and medical clearance. Also, for patients with a history of failed moderate sedation consider anesthesia. Airway Lungs Heart ASA score ASA 1: a normal healthy patient ASA 2: a patient with a mild systemic disease (mid diabetes, controlled hypertension, obesity x ASA 3: a patient with a severe systemic disease that limits activity (angina, COPD, prior Myocardial infarction) ASA 4: a patient with an incapacitating disease that is a constant threat to life (CHF, renal failure) ASA 5: a moribund patient not expected to survive 24 hrs. (ruptured aneurysm) ASA 6: a declared brain- patient whose organs are being harvested. For emergent operations, add the letter E after the classification Mallampati Classification Grade 3 Sedation Plan Analgesia, Amnesia, Plan communicated to team members, Discussed options with patient/fam, Discussed risks with patient/fam The patient is an appropriate candidate to undergo the planned procedure, sedation, and anesthesia. The patient immediately re-assessed prior to indication. JOAQUIN ARELLANO MD May 06, 2021 08:01
--- NOTE | 2021-05-06 08:27 | Discharge Inst-Post CATH ---
Discharge Inst-CATH/EP Problems Reviewed?: Yes Post Cardiac Cath/EP D/C Inst Follow Up/Plan Hold Metformin for [address] Hermosillo's office in 4 weeks <b>CARDIAC CATH/EP PROCEDURE DISCHARGE INSTRUCTIONS</b> ACTIVITY * Go Home directly and rest. * Limit activity of the leg (or wrist if it was used) for 7 days including aerobics, swimming, jogging, bicycling, etc. * Restrict stair-climbing for 7 days if possible, if not, climb up with your non-cath leg, then bring together on the same step. * Avoid lifting, pushing, pulling or excessive movement of the affected extremity for 7 days. * Customary sexual activity may be resumed after 2 days-use caution not to use a position that strains or causes pain to the affected extremity. * No driving for 24 hours. * NO SMOKING. * Avoid straining for bowel movements for 7 days. * Gentle walking on level ground is allowed. * Returning to work will depend on the type of procedure and the results. Your doctor will discuss this with you. CALL YOUR DOCTOR FOR ANY OF THE FOLLOWING: *If bleeding from the puncture site occurs- Apply gentle pressure to site with clean cloth and call your doctor or EMS. * If a knot or lump forms under the skin, increases in size, or causes pain. * If bruising appears to be worsening or moving further down your leg instead of disappearing. * Temperature above 101 F. CARE OF YOUR GROIN INCISION; * Bruising or purple discoloration of the skin near the puncture site is common. * You may shower only, no bathtub bathing for 5 days. Be careful to avoid slipping as your leg may feel stiff. * If a closure device was used on your femoral artery, please see the attached guide regarding care of the device and your leg. * Leave dressing on FOR 24 hours. CARE OF YOUR WRIST INCISION; * Bruising or purple discoloration of the skin near the puncture site is common. * You may shower. * DO NOT submerge wrist. * Leave dressing on FOR 24 hours. JOAQUIN HERMOSILLO MD May 06, 2021 08:27
[2021-05-06] MEDS ORDERED: NS IV 1000 ML 1,000 ML IV SCH (08:30)
--- NOTE | 2021-05-06 08:51 | Cardiac Cath Report ---
Cardiac Cath Report Physician (s)/Tipple Mechanic (s) Physician JOAQUIN ARELLANO MD Pre-Procedure Diagnosis Pre-Procedure Diagnosis: Coronary artery disease Post-Procedure Note Procedure Start Date: May 06, 2021 Name of Procedure: Left heart catheterization Findings/Procedure Note PROCEDURE NOTE: 71 years old gentleman with history of hypertension, hyperlipidemia and diabetes mellitus, had an abnormal stress test with inferior wall ischemia, scheduled for cardiac catheterization possible PTCA. After explaining the procedure to the patient, all pros and cons were explained, all questions were answered. The patient signed the consent and then he was placed on the cardiac catheterization laboratory. Groin was prepped SL fashion local anesthesia was used. Sheath placed in the right radial artery, [place] catheter was advanced and prolapsed to the left ventricular cavity, pressure was measured, pullback LV to aorta was done, engaged the right and left coronary system, angiogram was done. At the end of the procedure the sheath was removed. 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 Mild disease in the right coronary artery 2. Mildly elevated left ventricular end-diastolic pressure DISCUSSION AND RECOMMENDATION: Medical therapy is recommended no intervention is warranted Anesthesia Type: Conscious Sedation Estimated blood loss (mL): 10 ml Contrast Amount: 37 ml Total Radiation Dose: 259 mGy Post-Procedure Diagnosis Post-operative diagnosis: Coronary artery disease Hypertension Hyperlipidemia Diabetes mellitus JOAQUIN ARELLANO MD May 06, 2021 08:51
== END 2021-05-06 11:30 | disposition home or self-care (01) ==
LOC: CATH 08:00 → SDC 09:00 → CATH 11:30
PROVIDERS: ATTEND Internal Medicine Cardiovascular Disease
DX: I25.10 Atherosclerotic heart disease of native coronary artery without angina pectoris (principal); I10 Essential (primary) hypertension; E78.2 Mixed hyperlipidemia; E11.9 Type 2 diabetes mellitus without complications; I65.23 Occlusion and stenosis of bilateral carotid arteries; J44.9 Chronic obstructive pulmonary disease, unspecified; I27.20 Pulmonary hypertension, unspecified; F41.9 Anxiety disorder, unspecified; Z79.891 Long term (current) use of opiate analgesic; Z79.899 Other long term (current) drug therapy; Z79.84 Long term (current) use of oral hypoglycemic drugs
CPT/HCPCS: 71045; 80053; 80061; 81000; 85027; 85610; 85730; 87081; 93458; C1894; 36415

== ENCOUNTER 2021-08-12 18:09 | Emergency (ER) | payer MEDICARE, OTHER ==
[~2021-08-12] VITALS: Ht 182 cm; Wt 79.0 kg
[~2021-08-12 18:09] MED LIST changes: -HEParin (CATH LAB) 2,000 ML IV ONE; -HEParin 1000 UNIT/ML (10ML VIAL) FOR BOLUS ONE; -LIDOCAINE 1% INJ 50 ML (XYLOCAINE) VIAL ONE; -MIDAZOLAM 5 MG/5 ML (VERSED) VIAL ONE; -NITRO DRIP 25000 MCG/D5W 250 ML IV ONE; -NS IV 1000 ML 1,000 ML IV SCH; -NS IV 1000 ML 1,000 ML ONE; -VERAPAMIL 5 MG/2 ML (CALAN) VIAL IV ONE; -fentaNYL INJ 100 MCG/2 ML AMP ONE
--- NOTE | 2021-08-12 20:07 | ED Fall/Injury ---
General Chief Complaint: Trauma-Non Activation Stated Complaint: FELL Nursing Triage Note: PT REPORTS LOSING BALANCE WHILE WALKING IN [facility]. C/O INTERMITTANT LEFT RIB PAIN, LEFT THIGH PAIN, LEFT HAND/FOREARM SKIN TEAR. DENIES LOC. Source: patient Exam Limitations: no limitations History of Present Illness Date Seen by Provider: Aug 12, 2021 Time Seen by Provider: 20:04 Initial Comments Patient is a 71-year-old male presents ED with left-sided rib pain, left-sided forehead pain, left leg pain. Patient states he fell about 2 hours ago while walking at [facility]. Patient states he typically walks hunched over and lost his balance hitting the corner of a shelf. This resulted in 2 lacerations to his left forehead without loss of consciousness. Not on blood thinners. Does have abrasion to his left hand left forearm and elbow without any pain on palpation or movement. Does have a contusion to the left mid thigh with some pain and discomfort with some pain with walking. Left-sided rib pain without pain with deep inspiration but does have tenderness on palpation. No vomiting, dizziness, headache, neck pain, middle lower back pain. States he does have a history of falling but denies loss of consciousness or syncopal episode with this fall. Denies chest pain, shortness of breath, cough, abdominal pain Allergies and Home Medications Allergies Coded Allergies: Penicillins (Verified Allergy, Unknown, 03/04/16) morphine (Verified Adverse Reaction, Unknown, 08/12/21) DOES NOT LIKE THE WAY IT MAKES HIM FEEL. Patient Home Medication List Home Medication List Reviewed: Yes Albuterol Sulfate (Ventolin Hfa) 18 Gm Hfa.aer.ad, 1-2 PUFF IH PRN, (Reported) Entered as Reported by: LOUIS GARRISON on 03/08/16 1202 Albuterol Sulfate (Ventolin Hfa) 1 Puff Puff, 2 PUFF INH Q4H PRN for SHORTNESS OF BREATH, (Reported) Entered as Reported by: JESSICA RAMÍREZ on 05/06/21 0738 Alprazolam (Xanax) 0.5 Mg Tablet, 0.5 MG PO PRN, (Reported) Entered as Reported by: LOUIS GARRISON on 03/08/16 1202 Buspirone HCl (Buspirone HCl) 10 Mg Tablet, 20 MG PO, (Reported) Entered as Reported by: LOUIS GARRISON on 03/08/161201 Buspirone HCl (Buspirone HCl) 10 Mg Tablet, 20 MG PO NIGHT, (Reported) Entered as Reported by: JESSICA RAMÍREZ on 05/06/21737 Enalapril Maleate (Vasotec) 20 Mg Tablet, 10 MG PO BID, (Reported) Entered as Reported by: LOUIS GARRISON on 03/08/161201 Fluticasone/Umeclidin/Vilanter (Trelegy Ellipta 100-62.5-25) 1 Each Blst.w.dev, 1 EACH IH AM, (Reported) Entered as Reported by: JESSICA RAMÍREZ on 05/06/21737 Hydrochlorothiazide (Hydrochlorothiazide) 12.5 Mg Tablet, 12.5 MG PO DAILY, (Reported) Entered as Reported by: LOUIS GARRISON on 03/08/161201 Metformin HCl (Glucophage Xr) 500 Mg Tab.er.24h, 500 MG PO, (Reported) Entered as Reported by: LOUIS GARRISON on 03/08/161201 Metformin HCl (Metformin HCl) 500 Mg Tablet, 1,000 MG PO NIGHT, (Reported) Entered as Reported by: JESSICA RAMÍREZ on 05/06/21737 Rosuvastatin Calcium (Rosuvastatin Calcium) 10 Mg Tablet, 10 MG PO NIGHT, (Reported) Entered as Reported by: JESSICA RAMÍREZ on 05/06/21737 Sertraline HCl (Zoloft) 100 Mg Tablet, 100 MG PO BID, (Reported) Entered as Reported by: LOUIS GARRISON on 03/08/161201 Zafirlukast (Accolate) 20 Mg Tablet, 20 MG PO BID, (Reported) Entered as Reported by: LOUIS GARRISON on 03/08/161201 [Vitamin B12] , 2,000 MCG PO NIGHT, (Reported) Entered as Reported by: JESSICA RAMÍREZ on 05/06/21737 [Vitamin D] , 5,000 UNIT PO NIGHT, (Reported) Entered as Reported by: JESSICA RAMÍREZ on 05/06/21737 Review of Systems Review of Systems Constitutional: No chills, No diaphoresis, No malaise, No weakness Eyes: Denies Blurred Vision Ears, Nose, Mouth, Throat: denies ear pain Respiratory: No cough Cardiovascular: No chest pain, No edema Gastrointestinal: No abdominal pain, No diarrhea, No nausea, No vomiting Genitourinary: No decreased output, No discharge Musculoskeletal: No back pain; joint pain, muscle pain, muscle stiffness Skin: change in color, other (abrasion and laceration) All Other Systems Reviewed Negative Unless Noted: Yes Past Louwxyo-Dsxoem-Arsouz Hx Patient Social History Tobacco Use?: No Substance use?: No Alcohol Use?: No Immunizations Up To Date Tetanus Booster (TDap): Unknown 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 0.0oz. [id number]; 23.00 BMI Method: General Appearance: WD/WN, no apparent distress HEENT: PERRL/EOMI, normal ENT inspection, TMs normal, pharynx normal Neck: non-tender, full range of motion, supple, normal inspection Cardiovascular: regular rate, rhythm, no edema, no gallop, no JVD Respiratory: chest non-tender, lungs clear, normal breath sounds, no respiratory distress, other (Left-sided rib tenderness) Gastrointestinal: normal bowel sounds, non tender, soft, no pulsatile mass Back: normal inspection, no CVA tenderness, no vertebral tenderness Extremities: other (Abrasion to left dorsum hand, left mid forearm, abrasion to right lateral forearm. Normal active range of motion without any tenderness to the left upper extremity. Salt Washer strength 5-5.) Neurologic/Psychiatric: brand strategy manager II-XII nml as tested, no motor/sensory deficits, alert, normal mood/affect, oriented x 3 Skin: other (To 1 cm lacerations to the left forehead without crepitus or step- off.) [place] Coma Score Best Eye Response: (4) Open Spontaneously Best Verbal Response: (5) Oriented Best Motor Response: (6) Obeys Commands [place] Total: 15 Procedures/Interventions Wound Location: Other (left sided face) Other Wound Location left forehead Wound Length (cm): 1 Wound's Depth, Shape: superficial, sub Q Wound Explored: clean Irrigated w/ Saline (ccs): 100 Betadine Prep?: Yes Anesthesia: 1% Lidocaine Volume Anesthetic (ccs): 2 Wound Debrided: minimal Suture: Ethlion Suture Size: 5-0 Number of Sutures: 3 Layer Closure?: 1 Number Deep Layer Sutures: 1 Sterile Dressing Applied?: Yes Laceration. #2, 1 cm laceration to the left forehead above the left orbit. Superficial with mild subcutaneous involvement. Irrigation with 100 mils of n ormal saline. Prepped with Betadine. Lidocaine 1% 1 mL was used. 5-0 Ethilon to's stitches were placed. Progress/Results/Core Measures Results/Orders My Orders Orders - HAILEY NOVA Ct Head Wo (08/12/21 20:03) Femur, Left, 2 Views (08/12/21 20:03) Ribs, Left 2-3 Views (08/12/21 20:03) Vital Signs/I&O 08/12/21 08/12/21 18:15 20:53 Temp 36.3 36.3 Pulse 95 68 Resp 16 16 B/P (MAP) 133/89 (104) 122/87 Pulse Ox 96 99 O2 Delivery Room Air Room Air Blood Pressure Mean: 104 Departure Communication (PCP) Nonactivated trauma. Mechanical fall. GCS 15. Laceration to left forehead. 5 Ethilon sutures were placed to two 1 cm laceration to the forehead. Contusion noted. Recommend ice. remove in [address] scan head unremarkable. Abrasions to the left forearm and hand without any tenderness on palpation. Left femur tenderness with contusion. X-ray left femur was negative. Complaining some mild rib discomfort with very minimal tenderness without step- off or crepitus. X-ray was negative for fracture. No concussion-like symptoms. History of falls in the past. No chest pain, shortness of breath, Yunier pain, vomiting, diarrhea. Patient appears nontoxic. Recommend ice to the forehead with a small contusion. Patient is not on blood thinners. No cervical, thoracic or lumbar midline tenderness. Neuro exam unremarkable. Return precaution were discussed with patient and family. Impression Primary Impression: Facial laceration Disposition: 01 HOME, SELF-CARE Condition: Stable Departure-Patient Inst. Decision time for Depature: 20:52 Referrals: THANIA WELSH MD (PCP/Family) Primary Care Physician Patient Instructions: Laceration Repair With Stitches ED Add. Discharge Instructions: Remove sutures in 6 to 8 days. Neosporin topical twice a day. If any worsening symptoms such as severe headache, vomiting, change in mental status return back to ED for further evaluation All discharge instructions reviewed with patient and/or family. Voiced understanding. HAILEY NOVA Aug 12, 2021 20:07
--- NOTE | 2021-08-12 20:25 | Diagnostic Imaging Report ---
PROCEDURE: CT head without contrast. TECHNIQUE: Multiple contiguous axial images were obtained through the brain without the use of intravenous contrast. Auto Exposure Controls were utilized during the CT exam to meet ALARA standards for radiation dose reduction. INDICATION: Left-sided head pain. Fall. COMPARISON: None. FINDINGS: No intracranial hemorrhage, mass effect, hydrocephalus or extra-axial fluid collection. No CT evidence of an acute territorial infarction. Mild to moderate generalized parenchymal volume loss and leukoaraiosis. Mild mucosal thickening in the left maxillary sinus. The mastoids are clear. No acute osseous finding. IMPRESSION: No acute intracranial CT finding. Dictated by: Dictated on workstation # [id number]
--- NOTE | 2021-08-12 20:28 | Diagnostic Imaging Report ---
EXAM: Ribs, left 2-3 views INDICATION: Left chest wall pain. COMPARISON: Chest radiograph 05/06/2021. FINDINGS: No left rib fracture is identified. Left lung field is clear. Normal heart size and central pulmonary vascularity. IMPRESSION: No left rib fracture is identified. Dictated by: Dictated on workstation # [id number]
--- NOTE | 2021-08-12 20:29 | Diagnostic Imaging Report ---
EXAM: Femur, left, 2 views INDICATION: Left femur pain. COMPARISON: None. FINDINGS: No fracture or malalignment. Vascular calcifications. IMPRESSION: No acute radiographic finding in the left femur. Dictated by: Dictated on workstation # [id number]
[2021-08-12 20:53] VITALS: BP 122/87
== END 2021-08-12 20:55 | disposition home or self-care (01) ==
LOC: EDUNIT# 18:09 → ER 18:11
DX: S01.81XA Laceration without foreign body of other part of head, initial encounter (principal); S70.12XA Contusion of left thigh, initial encounter; S50.811A Abrasion of right forearm, initial encounter; R07.81 Pleurodynia; W18.30XA Fall on same level, unspecified, initial encounter; Y92.512 Supermarket, store or market as the place of occurrence of the external cause
CPT/HCPCS: 12011; 70450; 71100; 73552

== ENCOUNTER 2022-06-01 17:54 | Emergency (ER) | payer MEDICARE, OTHER ==
[~2022-06-01] VITALS: Ht 182 cm; Wt 78.0 kg
[2022-06-01] MEDS ORDERED: LIDOCAINE/EPI 1%-1:100,000 (XYLOCAINE) 20ML ONE (18:25)
--- NOTE | 2022-06-01 18:28 | ED Upper Extremity ---
General Chief Complaint: Laceration Stated Complaint: LASERATION ON LEFT HAND Nursing Triage Note: PT HAS LACERATION TO L THUMB FROM KNIFE. BLEEDING AT THIS X. PRESSURE APPLIED Source: patient Exam Limitations: no limitations History of Present Illness Date Seen by Provider: Jun 01, 2022 Time Seen by Provider: 18:23 Initial Comments Patient is a 72-year-old male who presents the ED with a laceration to his left thumb. This occurred around 5:00 pm. Patient was using a knife at home when he states the knife slipped while making dinner causing a skin avulsion to the left palmar thumb. Immediate applied pressure but states the bleeding has continued. Not on blood thinners. Normal active range of motion. Patient is not up-to-date on his tetanus. Allergies and Home Medications Allergies Coded Allergies: Penicillins (Verified Allergy, Unknown, 03/04/16) morphine (Verified Adverse Reaction, Unknown, 08/12/21) DOES NOT LIKE THE WAY IT MAKES HIM FEEL. Patient Home Medication List Home Medication List Reviewed: Yes Albuterol Sulfate (Ventolin Hfa) 18 Gm Hfa.aer.ad, 1-2 PUFF IH PRN, (Reported) Entered as Reported by: LOUIS GARRISON on 03/08/16 1202 Albuterol Sulfate (Ventolin Hfa) 1 Puff Puff, 2 PUFF INH Q4H PRN for SHORTNESS OF BREATH, (Reported) Entered as Reported by: JESSICA RAMÍREZ on 05/06/21 0738 Alprazolam (Xanax) 0.5 Mg Tablet, 0.5 MG PO PRN, (Reported) Entered as Reported by: LOUIS GARRISON on 03/08/16 1202 Buspirone HCl (Buspirone HCl) 10 Mg Tablet, 20 MG PO, (Reported) Entered as Reported by: LOUIS GARRISON on 03/08/16 1202 Buspirone HCl (Buspirone HCl) 10 Mg Tablet, 20 MG PO NIGHT, (Reported) Entered as Reported by: JESSICA RAMÍREZ on 05/06/21 0738 Enalapril Maleate (Vasotec) 20 Mg Tablet, 10 MG PO BID, (Reported) Entered as Reported by: LOUIS GARRISON on 03/08/16 1202 Fluticasone/Umeclidin/Vilanter (Trelegy Ellipta 100-62.5-25) 1 Each Blst.w.dev, 1 EACH IH AM, (Reported) Entered as Reported by: JESSICA RAMÍREZ on 05/06/21737 Hydrochlorothiazide (Hydrochlorothiazide) 12.5 Mg Tablet, 12.5 MG PO DAILY, (Reported) Entered as Reported by: LOUIS GARRISON on 03/08/161201 Metformin HCl (Glucophage Xr) 500 Mg Tab.er.24h, 500 MG PO, (Reported) Entered as Reported by: LOUIS GARRISON on 03/08/161201 Metformin HCl (Metformin HCl) 500 Mg Tablet, 1,000 MG PO NIGHT, (Reported) Entered as Reported by: JESSICA RAMÍREZ on 05/06/21737 Rosuvastatin Calcium (Rosuvastatin Calcium) 10 Mg Tablet, 10 MG PO NIGHT, (Reported) Entered as Reported by: JESSICA RAMÍREZ on 05/06/21737 Sertraline HCl (Zoloft) 100 Mg Tablet, 100 MG PO BID, (Reported) Entered as Reported by: LOUIS GARRISON on 03/08/161201 Zafirlukast (Accolate) 20 Mg Tablet, 20 MG PO BID, (Reported) Entered as Reported by: LOUIS GARRISON on 03/08/161201 [Vitamin B12] , 2,000 MCG PO NIGHT, (Reported) Entered as Reported by: JESSICA RAMÍREZ on 05/06/21737 [Vitamin D] , 5,000 UNIT PO NIGHT, (Reported) Entered as Reported by: JESSICA RAMÍREZ on 05/06/21737 Review of Systems Constitutional: No chills, No diaphoresis, No malaise, No weakness EENTM: No hearing loss, No blurred vision, No double vision, No hoarseness, No mouth pain, No throat pain, No throat swelling Respiratory: No cough Cardiovascular: No chest pain Gastrointestinal: No abdominal pain, No diarrhea, No nausea, No vomiting Genitourinary: No decreased output, No discharge Musculoskeletal: No back pain, No joint pain; muscle pain Skin: change in color All Other Systems Reviewed Negative Unless Noted: Yes Past Jdljqrd-Sessfh-Zwqhcx Hx Patient Social History Tobacco Use?: No Use of E-Cig and/or Vaping dev: No Substance use?: No Alcohol Use?: No Pt feels they are or have been: No Immunizations Up To Date Tetanus Booster (TDap): Unknown First/Initial COVID19 Vaccinat: UNKNOWN DATE Second COVID19 Vaccination Elton: UNKNOWN DATE Third COVID19 Vaccination Date: UNKNOWN DATE Seasonal Allergies Seasonal Allergies: No Past Medical History Surgery/Hospitalization HX: COPD Appendectomy, Tonsillectomy Asthma, COPD High Cholesterol, Hypertension Reproductive Disorders: No Sexually Transmitted Disease: No HIV/AIDS: No Diabetes, Non-Insulin dep Loss of Vision: Bilateral Hearing Impairment: Denies Anxiety, Depression Adverse Reaction/Blood Tranf: No (N/A) Physical Exam Vital Signs Vital Signs - First Documented 06/01/22 18:06 Temp 36.6 Pulse 60 Resp 18 B/P (MAP) 163/88 (113) Pulse Ox 96 Capillary Refill : Less Than 3 Seconds Height, Weight, BMI Height: 6'0.00" Weight: 180lbs. 0.0oz. 81.848857or; 23.00 BMI Method: General Appearance: WD/WN, no apparent distress HEENT: PERRL/EOMI, normal ENT inspection, TMs normal, pharynx normal Neck: non-tender, full range of motion, supple Cardiovascular: regular rate, rhythm, no edema, no gallop, no JVD Respiratory: chest non-tender, lungs clear, normal breath sounds Gastrointestinal: normal bowel sounds, non tender, soft, no organomegaly Back: normal inspection, no CVA tenderness, no vertebral tenderness Shoulder: normal inspection, non-tender Elbow/Forearm: normal inspection, non-tender, no evidence of injury Wrist: Yes normal inspection, Yes normal ROM Hand: Left, laceration (1 cm skin avulsion of left palmar thumb. Mild bleeding.) Neurologic/Tendon: normal sensation, normal motor functions, normal tendon functions Neurologic/Psychiatric: eap specialist II-XII nml as tested, no motor/sensory deficits, alert, normal mood/affect, oriented x 3 Skin: other (1 cm skin avulsion left palmar thumb. Mild bleeding) Procedures/Interventions Suture Size: 5-0 Progress/Results/Core Measures Results/Orders My Orders Orders - HAILEY NOVA Lidocaine/Epi 2% 1:100,000 (Xylocaine/Ep (06/01/22 18:30) Lidocaine/Epi 1% 1:100,000 (Xylocaine /E (06/01/22 18:25) Lidocaine/Epi 1% 1:100,000 (Xylocaine /E (06/01/22 18:30) Dipht,Pertuss(Acell),Tet Adult (Boostrix (06/01/22 18:45) Dipht,Pertuss(Acell),Tet Adult (Boostrix (06/01/22 18:41) Medications Given in ED Current Medications Medications Dose Ordered Sig/Chavez Route Start Time Stop Time Status Last Admin Dose Admin Diphtheria/ Tetanus/Acell Pertussis 0.5 ml ONCE ONCE IM 06/01/22 18:45 06/01/22 18:46 DC 06/01/22 18:44 0.5 ML Lidocaine/ Epinephrine 1 ml ONCE ONCE TOP 06/01/22 18:30 06/01/22 19:09 DC 06/01/22 18:30 1 ML Vital Signs/I&O 06/01/22 18:06 Temp 36.6 Pulse 60 Resp 18 B/P (MAP) 163/88 (113) Pulse Ox 96 Blood Pressure Mean: 113 Departure Communication (PCP) Patient has a skin avulsion of the left thumb. Updated patient's tetanus. Did have some mild bleeding not on blood thinners. Irrigated with normal saline and Shur-Clens. Put a digital tourniquet on which significant improved. Bleeding better controlled. Did apply small amount of silver nitrate with complete resolution. wrapped the finger remove the tourniquet bleeding controlled. Recommend Neosporin topical twice a day. Keep the area covered. If any worsening symptoms return back to ED for further evaluation. Impression Primary Impression: Skin avulsion Disposition: HOME, SELF-CARE Condition: Stable Departure-Patient Inst. Decision time for Depature: 18:27 Referrals: THANIA WELSH MD (PCP/Family) Primary Care Physician Patient Instructions: SKIN AVULSION HAILEY NOVA Jun 01, 2022 18:28
[2022-06-01] MEDS ORDERED: LIDOCAINE/EPI 2% 1:100,00 (XYLOCAINE) 20 ML VIAL INJ ONE (18:30)
[2022-06-01] MEDS ORDERED: LIDOCAINE/EPI 1%-1:100,000 (XYLOCAINE) 20ML TOP ONE (18:30)
[2022-06-01] MEDS ORDERED: TETANUS,DIPTH,PERTUSS P/F (BOOSTRIX) 0.5 ML VIAL IM ONE ×2 (18:41→18:45)
[2022-06-01 19:29] VITALS: BP 163/88
== END 2022-06-01 19:29 | disposition home or self-care (01) ==
LOC: EDUNIT# 17:54 → ER 17:57
DX: S61.012A Laceration without foreign body of left thumb without damage to nail, initial encounter (principal); Z23 Encounter for immunization; W26.0XXA Contact with knife, initial encounter; Y93.G3 Activity, cooking and baking
CPT/HCPCS: 12001; 90715

== ENCOUNTER → 2022-08-23 | Outpatient (CLI) | payer MEDICARE, OTHER | LOC: CARD 08:21 | PROVIDERS: ATTEND Internal Medicine Cardiovascular Disease | DX: I10 Essential (primary) hypertension (principal) | CPT/HCPCS: 93306 ==

== ENCOUNTER → 2022-09-02 | Outpatient (CLI) | payer MEDICARE, OTHER ==
[2022-09-02 12:30] LABS: ABSOLUTE RETIC # 85 10e9/uL (24-90); BASOPHILS % (AUTO) 0 % (0-10); EOSINOPHILS # (AUTO) 0.1 10^3/uL (0.0-0.3); EOSINOPHILS % (AUTO) 4 % (0-10); HEMATOCRIT 39 % (40-54); HEMOGLOBIN 13.5 g/dL (13.3-17.7); LYMPHOCYTES # (AUTO) 1.2 10^3/uL (1.0-4.0); LYMPHOCYTES % (AUTO) 37 % (12-44); MEAN CORPUSCULAR HEMOGLOBIN 32 pg (25-34); MEAN CORPUSCULAR HGB CONC 35 g/dL (32-36); MEAN CORPUSCULAR VOLUME 92 fL (80-99); MEAN PLATELET VOLUME 10.5 fL (9.0-12.2); MONOCYTES # (AUTO) 0.2 10^3/uL (0.0-1.0); MONOCYTES % (AUTO) 7 % (0-12); NEUTROPHILS # (AUTO) 1.7 10^3/uL (1.8-7.8); NEUTROPHILS % (AUTO) 52 % (42-75); PLATELET COUNT 136 10^3/uL (130-400); RETICULOCYTE % 2.03 % (0.50-2.40); WHITE BLOOD COUNT 3.3 10^3/uL (4.3-11.0)
[2022-09-02 13:16] LABS: EOSINOPHILS % (MANUAL) 3 %; LYMPHOCYTES % (MANUAL) 45 %; MONOCYTES % (MANUAL) 4 %; NEUTROPHILS % (MANUAL) 45 %; RBC MORPH NORMAL; REACTIVE LYMPHOCYTES 3 %
== END ==
LOC: LAB 11:31
PROVIDERS: ATTEND Nurse Practitioner Family
DX: D61.818 Other pancytopenia (principal)
CPT/HCPCS: 36415; 85007; 85027; 85045; 85055

== ENCOUNTER 2022-10-02 18:49 | Emergency (ER) | payer MEDICARE, OTHER ==
[~2022-10-02] VITALS: Ht 183 cm; Wt 77.1 kg
[2022-10-02] MEDS ORDERED: RX-MUPIROCIN (BACTROBAN) 2% OINT 22 GM TUBE TOP STA (19:13)
--- NOTE | 2022-10-02 19:20 | ED Fall/Injury ---
General Stated Complaint: HEAD LACERATION/SHOULDER AND KNEE PAIN Source: patient History of Present Illness Date Seen by Provider: Oct 02, 2022 Time Seen by Provider: 19:07 Initial Comments PT ARRIVES VIA POV FROM HOME--DRINKING A SODA PT STATES HE HAS B.P.V. ( BENIGN POSITIONAL VERTIGO) AND WAS SITTING AT [employer] AND STARTED TO FEEL AN ATTACK COMING ON, SO HE GOT UP AND STARTED WALKING TO HIS CAR AND WAS DIZZY AND LOST HIS BALANCE AND FELL ONTO PAVEMENT. HE DROVE HIMSELF HOME, THEN CAME HERE WITH HIS DENIES LOSS OF CONSCIOUSNESS NO VISION CHANGES. DID BEND HIS GLASSES HAS ABRASIONS TO RIGHT FOREHEAD/BROW AREA AND RIGHT CHEEK ALSO C/O PAIN AND HAS ABRASIONS TO RIGHT SHOULDER AND LEFT KNEE. HE STATES HE IS NOT DIZZY ANYMORE THIS IS TYPICAL OF HIS B.P.V. HE STATES IT USUALLY ONLY LASTS A SHORT PERIOD OF TIME. HE DOES NOT TAKE ANY MEDICATIONS FOR IT, ONLY B12. PT IS NOT ON ASPIRIN OR BLOOD THINNERS NO HEADACHE NO PARESTHESIAS OR MOTOR DEFICITS NO NAUSEA/VOMITING NO NECK OR BACK PAIN NO CHEST OR ABDOMINAL PAIN NO HIP PAIN PT IS ABLE TO WALK ON HIS OWN LAST TETANUS 05/2022. PCP: YU DUFFY Allergies and Home Medications Allergies Coded Allergies: Penicillins (Verified Allergy, Unknown, 03/04/16) morphine (Verified Adverse Reaction, Unknown, 08/12/21) DOES NOT LIKE THE WAY IT MAKES HIM FEEL. Patient Home Medication List Home Medication List Reviewed: Yes Albuterol Sulfate (Ventolin Hfa) 18 Gm Hfa.aer.ad, 1-2 PUFF IH PRN, (Reported) Entered as Reported by: LOUIS GARIRSON on 03/08/16 1202 Albuterol Sulfate (Ventolin Hfa) 1 Puff Puff, 2 PUFF INH Q4H PRN for SHORTNESS OF BREATH, (Reported) Entered as Reported by: JESSICA RAMÍREZ on 05/06/21 0738 Alprazolam (Xanax) 0.5 Mg Tablet, 0.5 MG PO PRN, (Reported) Entered as Reported by: LOUIS GARRISON on 03/08/16 1202 Buspirone HCl (Buspirone HCl) 10 Mg Tablet, 20 MG PO, (Reported) Entered as Reported by: LOUIS GARRISON on 03/08/161201 Buspirone HCl (Buspirone HCl) 10 Mg Tablet, 20 MG PO NIGHT, (Reported) Entered as Reported by: JESSICA RAMÍREZ on 05/06/21737 Enalapril Maleate (Vasotec) 20 Mg Tablet, 10 MG PO BID, (Reported) Entered as Reported by: LOUIS GARRISON on 03/08/161201 Fluticasone/Umeclidin/Vilanter (Trelegy Ellipta 100-62.5-25) 1 Each Blst.w.dev, 1 EACH IH AM, (Reported) Entered as Reported by: JESSICA RAMÍREZ on 05/06/21737 Hydrochlorothiazide (Hydrochlorothiazide) 12.5 Mg Tablet, 12.5 MG PO DAILY, (Reported) Entered as Reported by: LOUIS GARRISON on 03/08/161201 Metformin HCl (Glucophage Xr) 500 Mg Tab.er.24h, 500 MG PO, (Reported) Entered as Reported by: LOUIS GARRISON on 03/08/161201 Metformin HCl (Metformin HCl) 500 Mg Tablet, 1,000 MG PO NIGHT, (Reported) Entered as Reported by: JESSICA RAMÍREZ on 05/06/21737 Rosuvastatin Calcium (Rosuvastatin Calcium) 10 Mg Tablet, 10 MG PO NIGHT, (Reported) Entered as Reported by: JESSICA RAMÍREZ on 05/06/21737 Sertraline HCl (Zoloft) 100 Mg Tablet, 100 MG PO BID, (Reported) Entered as Reported by: LOUIS GARRISON on 03/08/161201 Zafirlukast (Accolate) 20 Mg Tablet, 20 MG PO BID, (Reported) Entered as Reported by: LOUIS GARRISON on 03/08/161201 [Vitamin B12] , 2,000 MCG PO NIGHT, (Reported) Entered as Reported by: JESSICA RAMÍREZ on 05/06/21737 [Vitamin D] , 5,000 UNIT PO NIGHT, (Reported) Entered as Reported by: JESSICA RAMÍREZ on 05/06/21737 Review of Systems Review of Systems Constitutional: no symptoms reported Eyes: No Symptoms Reported Ears, Nose, Mouth, Throat: no symptoms reported Respiratory: no symptoms reported Cardiovascular: no symptoms reported Gastrointestinal: no symptoms reported Genitourinary: no symptoms reported Musculoskeletal: see HPI Skin: see HPI Psychiatric/Neurological: No Symptoms Reported Past Grkfimw-Vywmdl-Wutgnc Hx Patient Social History Tobacco Use?: No Use of E-Cig and/or Vaping dev: No Substance use?: No Alcohol Use?: No Immunizations Up To Date Tetanus Booster (TDap): Less than 5yrs First/Initial COVID19 Vaccinat: UNKNOWN DATE Second COVID19 Vaccination Elton: UNKNOWN DATE Third COVID19 Vaccination Date: UNKNOWN DATE Seasonal Allergies Seasonal Allergies: No Past Medical History Surgery/Hospitalization HX: COPD Surgeries: Yes Appendectomy, Tonsillectomy Asthma, COPD High Cholesterol, Hypertension Reproductive Disorders: No Sexually Transmitted Disease: No HIV/AIDS: No Diabetes, Non-Insulin dep Loss of Vision: Bilateral Hearing Impairment: Denies Anxiety, Depression Adverse Reaction/Blood Tranf: No (N/A) Physical Exam Vital Signs Vital Signs - First Documented 10/02/22 19:00 Temp 36.4 Pulse 95 Resp 18 B/P (MAP) 128/96 (107) Pulse Ox 95 O2 Delivery Room Air Capillary Refill : Height, Weight, BMI Height: 6'0.00" Weight: 180lbs. 0.0oz. [id number]; 23.00 BMI Method: General Appearance: WD/WN, no apparent distress HEENT: PERRL/EOMI, normal ENT inspection, TMs normal, pharynx normal, other (ABRASIONS TO RIGHT FOREHEAD/BROW AREA AND TO RIGHT MAXILLA/CHEEK AREA) Neck: non-tender, full range of motion, supple, normal inspection Cardiovascular: regular rate, rhythm, no edema, no JVD, no murmur Respiratory: chest non-tender, normal breath sounds, no respiratory distress, no accessory muscle use Gastrointestinal: normal bowel sounds, non tender, soft Back: normal inspection, no CVA tenderness, no vertebral tenderness Extremities: normal range of motion, no pedal edema, no calf tenderness, normal capillary refill, other (ABRASION AND TENDERNESS TO RIGHT SHOULDER; ABRASION AND TENDERNESS TO LEFT KNEE. FULL ROM. SENSORY/VASCULAR INTACT. ) Neurologic/Psychiatric: airplane cleaner II-XII nml as tested, no motor/sensory deficits, alert, normal mood/affect, oriented x 3; No abnormal cerebellar tests Skin: normal color, warm/dry, other (ABRASIONS NOTED ABOVE) Britney Coma Score Best Eye Response: (4) Open Spontaneously Best Verbal Response: (5) Oriented Best Motor Response: (6) Obeys Commands [place] Total: 15 Procedures/Interventions Suture Size: 5-0 Progress/Results/Core Measures Results/Orders My Orders Orders - PATSY KRISHNA DO Ct Head/Face/Cervical Wo (10/02/22 19:13) Shoulder, Right, 3 Views (10/02/22 19:13) Knee, Left, 3 Views (10/02/22 19:13) Wound Dressing-Ed (10/02/22 19:13) Rx-Mupirocin 2% Oint (Rx-Bactroban) (10/02/22 19:13) Vital Signs/I&O 10/02/22 19:00 Temp 36.4 Pulse 95 Resp 18 B/P (MAP) 128/96 (107) Pulse Ox 95 O2 Delivery Room Air Progress Progress Note : Progress Note WOUNDS CLEANSED AND DRESSED WITH BACTROBAN AND STERILE DRESSINGS. UNEVENTFUL ER STAY NO DIZZINESS NO HEADACHE WALKS WITHOUT DIFFICULTY NO NEUROLOGICAL ABNORMALITIES DISCUSSED TEST RESULTS, ANTICIPATED COURSE, SYMPTOMATIC TREATMENT, WOUND CARE, NEED FOR FOLLOW UP AND RETURN PRECAUTIONS REVIEWED PRIOR RECORDS Diagnostic Imaging Comments PER RADIOLOGIST REPORTS AT 3 CT HEAD/MAXILLOFACIALS/CERVICAL SPINE-- COMPARISON: 08/12/2021. FINDINGS: HEAD: Mild diffuse cerebral volume loss with proportional enlargement of the ventricles and sulci. Mild hypodensities throughout the supratentorial white matter of both cerebral hemispheres. No acute intracranial hemorrhage or abnormal extra-axial fluid collections are present. Calcification of the intracranial ICAs. No hyperdense vessel. The calvarium is intact. The mastoid air cells are clear. Mild mucosal thickening of the paranasal sinuses. The orbits are normal. Small right frontal scalp laceration. C-SPINE: Vertebral body height and alignment are preserved. No acute fracture, dislocation or destructive osseous process. There is multilevel facet hypertrophy without perched facets. There is multilevel cervical spondylosis. The paraspinous soft tissues are normal. The visualized thyroid gland is normal. The visualized lung apices are normal. FACE: No fracture is seen in the face. The nasal bones are normal. Mandible and maxillae are normal. Zygomatic arches are normal. Pterygoid plates are normal. No soft tissue abnormality is seen. IMPRESSION: 1. No acute intracranial abnormality. 2. No cervical spine fracture. 3. No fracture in the face. RIGHT SHOULDER XRAYS-- FINDINGS: There is no acute fracture, dislocation or destructive osseous process. The joint spaces are normal. The soft tissues are normal. IMPRESSION: No acute osseous abnormality. LEFT KNEE-- FINDINGS: There is no acute fracture, dislocation or destructive osseous process. The joint spaces are normal. The soft tissues are normal. IMPRESSION: No acute osseous abnormality. Departure Impression Primary Impression: Fall from standing Additional Impressions: HISTORY OF BENIGN POSITIONAL VERTIGO Minor head injury without loss of consciousness FACIAL CONTUSION AND ABRASIONS Neck strain RIGHT SHOULDER CONTUSION AND ABRASON LEFT KNEE CONTUSION AND ABRASION Disposition: 01 HOME, SELF-CARE Condition: Stable Departure-Patient Inst. Decision time for Depature: 19:55 Referrals: MARGIE DUFFY (PCP/Family) Primary Care Physician Patient Instructions: Cervical Sprain ED, Contusion (DC), Eye Contusion (DC), Minor Head Injury, Adult ED, Skin Abrasions (DC) Add. Discharge Instructions: CLEAN WOUNDS TWICE A DAY WITH ANTIBACTERIAL SOAP AND WATER. APPLY ANTIBIOTIC OINTMENT AND FRESH DRESSINGS TWICE A DAY ICE TO SORE AREAS AT 20 MINUTE INTERVALS TYLENOL AND MOTRIN NEEDED FOR PAIN DO NOT DRIVE IF YOU ARE DIZZY RETURN TO ER IF YOU HAVE ANY WORSENING OF SYMPTOMS PATSY KRISHNA DO Oct 02, 2022 19:20
--- NOTE | 2022-10-02 19:49 | Diagnostic Imaging Report ---
EXAMINATION: Left knee radiographs. EXAM DATE: 10/02/2022 7:46 PM COMPARISON: None available. HISTORY: Left knee pain. TECHNIQUE: 2 views. FINDINGS: There is no acute fracture, dislocation or destructive osseous process. The joint spaces are normal. The soft tissues are normal. IMPRESSION: No acute osseous abnormality. Dictated by: Dictated on workstation # [id number]
--- NOTE | 2022-10-02 19:50 | Diagnostic Imaging Report ---
EXAMINATION: CT head, face and CT cervical spine without contrast. TECHNIQUE: Multiple contiguous axial images were obtained through the face, brain and cervical spine without the use of intravenous contrast. Sagittal and coronal reformations through the cervical spine were then performed. All CT scans use one or more of the following dose optimizing techniques: automated exposure control, MA and/or KvP adjustment based on patient size and exam type or iterative reconstruction. HISTORY: Face, head and neck pain after injury. COMPARISON: 08/12/2021. FINDINGS: HEAD: Mild diffuse cerebral volume loss with proportional enlargement of the ventricles and sulci. Mild hypodensities throughout the supratentorial white matter of both cerebral hemispheres. No acute intracranial hemorrhage or abnormal extra-axial fluid collections are present. Calcification of the intracranial ICAs. No hyperdense vessel. The calvarium is intact. The mastoid air cells are clear. Mild mucosal thickening of the paranasal sinuses. The orbits are normal. Small right frontal scalp laceration. C-SPINE: Vertebral body height and alignment are preserved. No acute fracture, dislocation or destructive osseous process. There is multilevel facet hypertrophy without perched facets. There is multilevel cervical spondylosis. The paraspinous soft tissues are normal. The visualized thyroid gland is normal. The visualized lung apices are normal. FACE: No fracture is seen in the face. The nasal bones are normal. Mandible and maxillae are normal. Zygomatic arches are normal. Pterygoid plates are normal. No soft tissue abnormality is seen. IMPRESSION: 1. No acute intracranial abnormality. 2. No cervical spine fracture. 3. No fracture in the face. Dictated by: Dictated on workstation # [id number]
--- NOTE | 2022-10-02 19:50 | Diagnostic Imaging Report ---
EXAMINATION: Right shoulder radiographs. EXAM DATE: 10/02/2022 7:45 PM COMPARISON: None available. HISTORY: Shoulder pain. TECHNIQUE: 3 views. FINDINGS: There is no acute fracture, dislocation or destructive osseous process. The joint spaces are normal. The soft tissues are normal. IMPRESSION: No acute osseous abnormality. Dictated by: Dictated on workstation # [id number]
[2022-10-02 20:10] VITALS: BP 137/90
== END 2022-10-02 20:10 | disposition home or self-care (01) ==
LOC: EDUNIT# 18:49 → ER 18:52
DX: S09.90XA Unspecified injury of head, initial encounter (principal); S16.1XXA Strain of muscle, fascia and tendon at neck level, initial encounter; S80.02XA Contusion of left knee, initial encounter; S40.011A Contusion of right shoulder, initial encounter; S00.83XA Contusion of other part of head, initial encounter; Z86.69 Personal history of other diseases of the nervous system and sense organs; W01.0XXA Fall on same level from slipping, tripping and stumbling without subsequent striking against object, initial encounter; Y92.480 Sidewalk as the place of occurrence of the external cause
CPT/HCPCS: 70450; 70486; 72125; 73030; 73562